=== PATIENT | male | born 1980 | race Two or more races ===

== ENCOUNTER → 2020-02-06 | Emergency (ER) | payer BC, OTHER ==
[~2020-02-06] VITALS: Ht 188 cm; Wt 102.1 kg
[2020-02-06 11:50] VITALS: BP 112/80
== END | disposition home or self-care (01) ==
LOC: ER 09:32
DX: S09.93XA Unspecified injury of face, initial encounter (principal); X58.XXXA Exposure to other specified factors, initial encounter; Y93.61 Activity, american tackle football; Y92.89 Other specified places as the place of occurrence of the external cause; Y99.8 Other external cause status
CPT/HCPCS: 70450; 70486